=== PATIENT | male | born 1975 | race Caucasian/White ===

== ENCOUNTER 2022-08-27 21:27 | Emergency (ER) | payer OTHER ==
[2022-08-27] MEDS: Take Home: Acetaminophen/Codeine 300 MG/30 MG, 5 Tab Pack PO ONE (21:40)
== END 2022-08-27 21:42 | disposition home or self-care (01) ==
LOC: VM.ED 21:27
DX: K08.89 Other specified disorders of teeth and supporting structures (principal); Z88.0 Allergy status to penicillin; Z88.8 Allergy status to other drugs, medicaments and biological substances
CPT/HCPCS: 99282; 99283; A9270-GY

== ENCOUNTER 2022-08-28 02:45 | Emergency (ER) | payer OTHER ==
[2022-08-28] MEDS ORDERED: GI Cocktail Oral Solution 30 ML PO ONE (03:06)
== END 2022-08-28 03:35 | disposition home or self-care (01) ==
LOC: VM.ED 02:45
DX: K21.9 Gastro-esophageal reflux disease without esophagitis (principal); Z88.6 Allergy status to analgesic agent; Z88.0 Allergy status to penicillin
CPT/HCPCS: 99283; 99284; A9270-GY